=== PATIENT | female | born 1950 | race Caucasian/White ===

== ENCOUNTER 2019-07-19 06:24 | Observation (INO) ==
--- NOTE | 2019-06-23 14:22 | ANES ---
Anesthesia Pre Procedure Eval HOME MEDICATIONS acetaminophen 500 mg tablet 500 mg PO .COMPLEX PRN 06/17/19 [Last Taken Unknown] flecainide 50 mg tablet 50 mg PO .COMPLEX tab 06/17/19 [Last Taken Unknown] metoprolol tartrate 100 mg tablet 100 mg PO BID tab 06/17/19 [Last Taken Unknown] omega-3 fatty acids 1,000 mg capsule 1,000 mg PO DAILY 06/17/19 [Last Taken Unknown] omeprazole 20 mg capsule,delayed release 20 mg PO DAILY cap 06/17/19 [Last Taken Unknown] warfarin 5 mg tablet 5 mg PO QAM tab 06/17/19 [Last Taken Unknown] Allergies/Adverse Reactions: Allergies Allergy/AdvReac Type Severity Reaction Status Date / Time Penicillins Allergy Mild Itching/loco Verified 06/23/19 08:42 h - Planned Procedure Planned Procedure: Arthroplasty Total Knee, Left Medication List Reviewed:: Yes Allergies Verified: Yes Medical History (Last Reviewed 06/23/19 @ 14:21 by Carmelo Kulkarni CRNA) Vertigo (Chronic) Panic attacks (Chronic) Scoliosis (Chronic) Stress incontinence (Chronic) Kidney stones (Chronic) Joint pain (Chronic) Arthritis (Chronic) Anemia (Chronic) Diarrhea (Chronic) Constipation (Chronic) History of IBS (Chronic) Irregular heart beat (Chronic) Basal cell carcinoma removed-right lower leg and face Surgical History (Last Reviewed 06/23/19 @ 14:21 by Carmelo Kulkarni CRNA) H/O removal of cyst Onset Date: ~2007 fatty cyst removed under right arm-[facility] H/O tubal ligation History of ankle surgery Onset Date: ~2013 left ankle arthroscopy-[facility] in [place] Family History (Last Reviewed 06/23/19 @ 14:21 by Carmelo Kulkarni CRNA) Mother Depression Breast cancer Father Sleep apnea A-fib Uncle Blood clot in vein - Family Anesthesia History Family History:: no untoward family reactions to anesthesia, no familial bleeding tendencies, no family history of clotting disorders, no family history of premature - Airway/Neck/Teeth Within Normal Limits:: Yes Mallampatti Score: 3 Thyromental (T-M) distance: > 6 cm Mandibulo Hyoid distance: > 3 cm - Respiratory Respiratory Physical: lungs clear Smoking Status: Former smoker Discussed smoking cessation including day of surgery: No Sleep Apnea currently treated: No Sleep Apnea by current assessment: No Discussed Risks/Treatment of RAPHAEL: No - Cardiovascular Tolerate Activity: Fair Heart Sounds: S1 & S2, Regular - Anesthesia Assessment and Plan ASA Class: PS, III Anesthesia Type Plan: Block - Ultrasound guided adductor canal block for postop analgesia, Spinal
[~2019-07-19 06:24] MED LIST: MORPHINE SULFATE 15 MG TABLET.SA PO PRN; ROPIVACAINE HCL/PF 100 MG, EPINEPHrine 0.2 MG, KETOROLAC TROMETHAMINE 30 MG in NORMAL S... IJ PRN; TRANEXAMIC ACID 1,000 MG in NORMAL SALINE 100 ML IV PRN; ceFAZolin SODIUM 1 GM VIAL IV PRN
[2019-07-19] MEDS ORDERED: ceFAZolin SODIUM 1 GM VIAL ONE (06:33)
[2019-07-19] MEDS ORDERED: ISOPROPYL ALCOHOL 480 APPL BTL MC ONE (06:33)
[2019-07-19] MEDS ORDERED: MIDAZOLAM HCL/PF 5 MG/ML VIAL ONE (06:54)
[2019-07-19] MEDS ORDERED: PROPOFOL VIAL IV ONE ×2 (06:54→07:34)
[2019-07-19] MEDS ORDERED: ONDANSETRON HCL/PF 2 MG/ML VIAL ONE ×2 (06:54→07:33)
[2019-07-19] MEDS ORDERED: LIDOCAINE HCL 50 ML VIAL ONE (06:54)
[2019-07-19] MEDS ORDERED: BUPIVACAINE HCL/EPINEPHRINE 50 ML VIAL ONE (06:55)
[2019-07-19] MEDS: RINGER'S SOLUTION,LACTATED 1,000 ML IV PRN ×3 (07:12→10:00)
[2019-07-19] MEDS ORDERED: LIDOCAINE HCL 20 ML VIAL ONE (07:33)
[2019-07-19] MEDS ORDERED: fentaNYL CITRATE/PF 50 MCG/ML AMPUL ONE (07:33)
[2019-07-19 07:37] LABS: Prothrombin Time (Patient) 10.2 Seconds (9.1-10.7)
[2019-07-19 07:38] LABS: INR 1.03 INR (0.92-1.08)
[2019-07-19] MEDS ORDERED: ZOLPIDEM TARTRATE 5 MG TABLET PO PRN (09:43)
[2019-07-19] MEDS ORDERED: ACETAMINOPHEN 500 MG TABLET PO PRN (09:43)
[2019-07-19] MEDS ORDERED: diphenhydrAMINE HCL 50 MG/ML VIAL IV PRN (09:43)
[2019-07-19] MEDS ORDERED: MORPHINE SULFATE 2 MG/ML DISP.SYRIN IV PRN (09:43)
[2019-07-19] MEDS ORDERED: MAGNESIUM HYDROXIDE 30 ML UDC PO PRN (09:43)
[2019-07-19] MEDS ORDERED: MAG HYDROX/ALUMINUM HYD/SIMETH 30 ML UDC PO PRN (09:43)
--- NOTE | 2019-07-19 09:48 | OR ---
Operative Report - Dictated Report Narrative: Date: 07/19/2019 Preoperative diagnosis: Left knee degenerative joint disease. Postoperative diagnosis: Left knee degenerative joint disease. Procedure: Left total knee arthroplasty. Surgeon: Frederick Tabor M.D. Wrecking Car Driver: Zeke Brar PA-C (provided and essential set of skilled, educated hands that assisted with transfer, positioning, prepping, draping, manipulation, retraction, placement of jigs, injection, insertion of implants, irrigation, closure wounds, and dressings all of which could not be performed by the available surgical crew) Anesthesia: Spinal with regional block and local periarticular joint injection. Complications: None Specimens: Bone. Estimated blood loss: Minimal. Tourniquet time: 80 Minutes at 300 millimeters of mercury. Retained implants: Depuy Attune size 7 left lugged cemented posterior stabilized femoral component. Size 5 fixed-bearing cemented tibial platform. 7 by 5 millimeter posterior stabilized cross-linked tibial insert. 38 millimeter medialized patella button. Indications: Mrs. Velazco is a 69-year-old female who has had longstanding left knee pain and arthrosis. This patient was followed in my clinic for period of time with significant complaints of left knee pain consistent with arthritic changes. She had failed conservative measures including, but not limited to, activity modification, passage of time, medications, and other conservative measures. Patient wished to proceed with surgical treatment. The risks, benefits, and alternatives were discussed in clinic. The risks of , blood clots, bleeding, infection, nerve/tendon blood vessel/ injury, malposition of components, intraoperative fracture, postoperative limited range of motion, persistent pain, failure of components, and need for additional procedures. Patient wished to proceed consent was obtained after answering all questions. Procedure: After marking the correct extremity on the floor, the patient was taken to the operating room. A timeout was performed. IV antibiotics consisting of Ancef were administered prior to the procedure. A regional followed by spinal anesthetic was induced by anesthesia, per my request, on the operative table with all bony prominences well-padded. Christopher catheter was placed, and a bump was placed under the operative side buttock. SCDs and VANESSA hose were utilized on the nonoperative leg. A well-padded tourniquet was applied to the operative thigh. The operative leg was then pre-scrubbed with alcohol, prepped, and draped in a standard sterile fashion. After exsanguinating the extremity with an Esmarch bandage, the tourniquet was inflated. After marking out the anterior knee for standard incision centered over the patella, the skin was incised and dissected down to the joint retinaculum. The joint retinaculum was marked out as well as the horizontal axis of the patella, and a standard medial parapatellar arthrotomy was then made. The most proximal aspect of the quadriceps tendon and the patella tendon insertion were protected from release. A partial synovectomy was performed as well as a resection of the infrapatellar fat pad. The distal femoral fat pad proximal to the trochlea was also resected using cautery. The soft tissues were elevated off the medial aspect of the proximal tibia using a Sosa elevator ensuring that we did not transect the medial collateral ligament. Upon initial evaluation range of motion was approximately 5 degrees to 130 degrees of flexion. There were signs of advanced arthrosis in the medial and patellofemoral greater than lateral joint spaces. There were large marginal osteophytes which were removed with a rongeur. The knee was hyperflexed and the patella was tucked laterally. Protecting the surrounding soft tissues with Homans, an entry drill was placed down the femoral canal using Whitesides line for guidance into the entry point. The intramedullary femoral alignment jose was utilized in order to cut the distal femur in 5 degrees of valgus resecting 10 millimeters of bone. Next the distal femur was sized to a size 7. A posterior referencing guide was utilized to place the distal femoral cutting block in 3 degrees of external rotation. This was pinned into place. The rotation was confirmed both visually and based on anatomic landmarks. The 4 in 1 cutting jig of the appropriate size was utilized in order to make all bony cuts. The angle wing was used to ensure no notching. Retractors were utilized in order to protect surrounding soft tissues. This cut did not result in any excessive notching. We then cut the box centered over the distal femur. This allowed for resection of the anterior and posterior cruciate ligaments. I then turned my attention to the preparation of the tibia. Using an extra medullary tibial alignment jose, 3 millimeters of bone was resected off the medial articular surface. This was made perpendicular to the mechanical axis of the joint with the alignment jose centered over the ankle mortise. The alignment jose was checked and was noted to be parallel to the mechanical axis, centered over the medial one third of the tibial tubercle, paralleling the anterior surface of the tibia. We then turned our attention to the remaining meniscus and soft tissues. These were removed while protecting the surrounding ligaments and soft tissues. The marginal osteophytes off the anterior, posterior, medial, lateral aspects of the femur and tibia were removed. The tibia was sized out to a size 5. Next the tibia was drilled and punched in an externally rotated position. Next the trial femur and a series of tibial inserts were utilized in order to allow for full extension and maximal flexion. It was found that a 5 millimeter insert gave the best range of motion and stability at multiple flexion points as well as at full extension there was less than 2 mm of gapping both medially and laterally. There is minimal anterior translation with the knee at 90 degrees of flexion and no signs of being able to dislocate the knee. The patella was then prepared. The initial thickness was 22 millimeters. This was reamed down to 12 millimeters parallel to the anterior surface of the patella. It was sized out to a size 38 medialized patella button. This was then drilled and trialed. Without any medial restraint the patella tracked appropriately and did not sublux or dislocate. At this point, it was felt these were the appropriate sized implants, and all trials were removed. The standard periarticular joint injection consisting of ropivacaine, Toradol, and epinephrine were injected into the periarticular joint tissues. The bony surfaces were thoroughly irrigated with a pulsatile-suction saline irrigation device. A bone plug from the prior resected anterior chamfer cut was placed into the drill hole at the distal femur. The bony surfaces were then dried in preparation for placement of the implants. The cement was vacuum mixed per the ordnance engineer's instructions. The cement was placed on the dry bony surfaces and posterior aspect of the implants. The implants were impacted into place, removing all extruded cement. At this point anesthesia administered tranexamic acid per protocol intravenously. The knee was placed in extension with axial loading with the trial insert while the cement cured. Once the cement cured, all remaining extruded cement was removed. The knee was placed through a range of motion with the trial insert to ensure appropriate range of motion and stability. Final range of motion was approximately 0 to 130 degrees. The knee was again thoroughly irrigated with pulsatile saline lavage. The final polyethylene insert was then impacted into place ensuring no retained soft tissues. The remaining periarticular joint injection was injected. A medium Hemovac drain was placed exiting superior laterally. The knee was then placed over a triangle and the arthrotomy was closed with interrupted #1 Vicryl after thoroughly irrigating the joint. The deep and subcutaneous tissues were closed with interrupted 0 and 3-0 Vicryl respectively. Skin was closed with a running subcutaneous 3-0 Monocryl and Prineo Dermabond dressing. 4 x 4's, Sof-Rol, and a full leg Juan Carlos wrap were applied. All sponge, needle, blade, and instrument counts were correct prior to closing the wounds. Postoperative condition: The patient was awoken and transferred to the postanesthesia care unit in stable condition. Plan is to be admitted to the inpatient medical/surgical floor postoperatively for 24 hours of IV antibiotics, physical therapy, occupational therapy, and medical comanagement. Patient will be weightbearing as tolerated with range of motion as tolerated. DVT prophylaxis will be with SCDs, VANESSA hose, and pharmacological anticoagulation. Anticipated hospital stay is approximately 1-3 days.
--- NOTE | 2019-07-19 10:06 | ANES ---
Post Anesthesia Discharge - Transfer of Care Transfer of Care handoff given to nurse: Yes - Discharge from PACU Discharge from PACU when meets criteria: Yes - Discharge to ASU Discharge to ASU-no complications/pt stable: Yes
--- NOTE | 2019-07-19 10:08 | ANES ---
Anesthesia Procedure Note Procedure Note: ANESTHESIA PROCEDURE NOTE Date of Procedure: 07/19/2018. Time of procedure: 0755. Performed by: Carmelo Kulkarni CRNA Machinist Mate: None. Preprocedure diagnosis: Left knee degenerative joint disease. Post procedure diagnosis: Same. Procedure: Left ultrasound guided adductor canal block for postoperative analgesia. Indications: The patient is a 69-year-old female, requesting left ultrasound- guided adductor canal block for postoperative analgesia related to left total knee arthroplasty. Findings: See below. Details of the procedure: The tissue over the intended target site was cleansed with ChloraPrepand draped in a sterile fashion. 2 ml Lidocaine 1 % was infiltrated to the skin and subcutaneous tissue at the intended target site. Under sterile technique and ultrasound guidance a 20-gauge block needle was inserted through the left sartorius muscle to the saphenous nerve just anterior and medial to the superficial femoral artery and vein. 15 mL's of 0.5% bupivacaine was injected after negative aspiration for blood. Needle tip and spread of local anesthetic surrounding the saphenous nerve was observed throughout the injection with real time ultrasound visualization. The needle was then removed intact. No complications were noted. The images were retained in the Hospital medical database. EBL: Minimal. Fluids: N/A. Specimen: N/A. Post procedure condition: The patient tolerated the procedure well. No complications were noted. Thank you for this consultation. Carmelo Kulkarni CRNA
[2019-07-19] MEDS: DEXTROSE 5%-LACTATED RINGERS 1,000 ML IV PRN ×2 (10:42→19:52)
[2019-07-19] MEDS: KETOROLAC TROMETHAMINE 15 MG/ML VIAL IV SCH ×3 (10:48→22:04)
[2019-07-19] MEDS: ceFAZolin SODIUM 1 GM in DEXTROSE 5 % IN WATER 100 ML IV SCH ×6 (10:48→23:08)
[2019-07-19] MEDS: oxyCODONE HCL/ACETAMINOPHEN 1 TAB TABLET PO PRN ×2 (11:57→16:10)
--- NOTE | 2019-07-19 12:20 | ANES ---
Post Anesthesia Assessment - Vital Signs Vitals: Last Vital Signs Temp 36.5 C 07/19/19 10:38 Pulse 57 L 07/19/19 11:23 Resp 14 07/19/19 10:53 BP 136/76 07/19/19 11:23 Pulse Ox 99 07/19/19 11:23 Airway Patency: Normal - Mental Status Level Of Consciousness: Awake - Pain Level Pain Score: 0 - N/V Assessment Nausea/Vomiting Presence: None Dehydration:: No
[2019-07-19] MEDS ORDERED: WARFARIN SODIUM 5 MG TABLET PO SCH (17:00)
[2019-07-19] MEDS: ONDANSETRON HCL/PF 2 MG/ML VIAL IV PRN ×2 (17:52→22:05)
[2019-07-19] MEDS: METOPROLOL TARTRATE 100 MG TABLET PO SCH (20:05)
[2019-07-19] MEDS: MORPHINE SULFATE 15 MG TABLET.SA PO SCH (20:09)
[2019-07-19] MEDS ORDERED: FLECAINIDE ACETATE 100 MG TABLET PO SCH (21:00)
[2019-07-19] MEDS ORDERED: SENNOSIDES/DOCUSATE SODIUM 1 TAB TABLET PO SCH (21:00)
[2019-07-20] MEDS: KETOROLAC TROMETHAMINE 15 MG/ML VIAL IV SCH ×2 (03:54→10:29)
[2019-07-20 06:20] LABS: Hematocrit 38.9 % (37.0-47.0); Hemoglobin 12.4 gm/dL (12.5-16.0); Mean Corpuscular Hemoglobin 27.7 pg (27-31); Mean Corpuscular Hgb Conc 31.9 g/dl (32-36); Mean Platelet Volume 9.6 fl (8-12.5); Platelet Count 119 K/mm3 (150-450); Red Blood Count 4.47 M/mm3 (4.2-5.4); Red Cell Distribution Width 13.4 % (11.5-14.0); White Blood Count 5.3 K/mm3 (4.0-10.5)
[2019-07-20 06:27] LABS: Anion Gap 9.8 mmol/L (6.8-13.8); BUN/Creatinine Ratio 11.4 (9.0-21.6); Calcium * 8.1 mg/dL (7.9-10.9); Carbon Dioxide 31.3 mmol/L (24-32.6); Estimated Creat Clear 55.7; Potassium 4.1 mmol/L (3.4-4.6)
[2019-07-20 06:28] LABS: Prothrombin Time (Patient) 10.3 Seconds (9.1-10.7)
[2019-07-20 06:30] LABS: INR 1.04 INR (0.92-1.08)
[2019-07-20] MEDS: ONDANSETRON HCL/PF 2 MG/ML VIAL IV PRN (06:43)
[2019-07-20] MEDS: oxyCODONE HCL/ACETAMINOPHEN 1 TAB TABLET PO PRN (06:43)
[2019-07-20] MEDS ORDERED: PANTOPRAZOLE SODIUM 20 MG TABLET.DR PO SCH (07:00)
[2019-07-20] MEDS: MORPHINE SULFATE 15 MG TABLET.SA PO SCH (08:09)
[2019-07-20] MEDS: METOPROLOL TARTRATE 100 MG TABLET PO SCH ×2 (08:24→10:30)
[2019-07-20] MEDS ORDERED: ENOXAPARIN SODIUM 40 MG/0.4 ML SYRG SC SCH (08:43)
[2019-07-20] MEDS ORDERED: OMEGA-3 FATTY ACIDS 1 CAP CAPSULE PO SCH (09:00)
[2019-07-20] MEDS ORDERED: FLECAINIDE ACETATE 100 MG TABLET PO SCH (09:00)
--- NOTE | 2019-07-20 09:51 | DS ---
(1) Status post left knee replacement Problem: Acute (2) Acute blood loss anemia Problem: Acute (3) Atrial fibrillation Problem: Chronic Date of Discharge:: 07/20/19 Hospital Course: was admitted to the floor after undergoing left total knee arthroplasty. Tolerated this well. Was admitted to the floor postoperatively for 24 hours of IV antibiotics, pain control, medical comanagement, [facility] OT and PT were consulted to assist with activities of daily living and ambulation. Was made weightbearing as tolerated with range of motion as tolerated. Pain was initially controlled with IV regimen. This was transitioned to oral once tolerating a by mouth intake. Was resumed on home diet and medications. Had a Christopher catheter inserted and the operating room which was discontinued on postoperative day 1. A drain was placed intraoperatively into the knee which was discontinued on postoperative day 1. Lovenox warfarin SCD and VANESSA hose were utilized for DVT prophylaxis. Vital signs remained stable to the hospital course. Serial labs were obtained which showed a final hemoglobin of 12.4 grams down from 14.4 g preoperatively. BMP was reviewed and was stable. Physical examination throughout the hospital course showed an extremity that had sensation that was intact to light touch, palpable pulses, a benign wound, motor intact to the toes, ankle, and knee. Knee range of motion was approximately 5 degrees to 70 degrees. Once an oral pain regimen was tolerated and physical therapy goals were met, it was felt that they were stable for discharge to home. Instructions: Continue with weightbearing as tolerated and range of motion as tolerated. It is OK to shower on the wound if it is not draining. If you note any drainage or for comfort you can cover with dry gauze and tape. Change every 2-3 days as needed. Continue with physical therapy. Resume home diet. Report any fever over 101.5 Fahrenheit, uncontrolled pain, increased drainage, foul odor of drainage, new or increased calf pain or shortness of breath, or any other significant complaints. Continue with VANESSA hose on the operative extremity until instructed otherwise. No driving until instructed otherwise. Patient was discharged with 3 days of Lovenox. She will have an INR 3 days from discharge to see if her warfarin is returning to her normal therapeutic level. Follow up in approximately 10-14 days. Procedures Performed: see notes below List Procedures: Left total knee arthroplasty Results and Findings: Lab Pending Results 07/19/19 07:28: PT 10.2, INR (Anticoag Therapy) 1.03 07/20/19 06:10: WBC 5.3, RBC 4.47, Hgb 12.4 L, Hct 38.9, MCV 87.0, MCH 27.7, MCHC 31.9 L, RDW 13.4, Plt Count 119 L, MPV 9.6 07/20/19 06:10: PT 10.3, INR (Anticoag Therapy) 1.04 07/20/19 06:10: Sodium 142, Plasma Sodium 142, Potassium 4.1, Chloride 105, Carbon Dioxide 31.3, Anion Gap 9.8, BUN 10 D, Creatinine 0.88, Est GFR (Non-Af Amer) 68, BUN/Creatinine Ratio 11.4, Random Glucose 109, Calcium 8.1 Discharge Location: Home Disposition: Home self-care Condition: Good Discharge Activity: Activity as tolerated, Weight bearing, Other - With wheeled walker Discharge Diet: General/regular food Referrals: Frederick Tabor MD [Staff Physician] - 08/10/19 10:30 am Problem Oriented Discharge Instructions to Patient/Family: Total Knee Replacement, Care After, Tlfp-mg-Vdtv Additional Patient Instructions (free text): Physical Therapy at [facility] outpatient on at 10:00. Please fax PT order to [phone]. Follow up Orthopedic Dr Cartwright Office appointment on FridayAug.10 at 10:30am. Prescriptions (Any new or edited meds): Enoxaparin Sodium [Lovenox] 40 mg SC Q24H #3 disp.syrin Transmission Status: Pending to [facility] [place] Morphine Sulfate [Ms Contin] 15 mg PO Q12H #14 tablet.sa Transmission Status: Sent to [facility] HYDROcodone/ACETAMINOPHEN [Alton 5-325 Tablet] 1 - 2 each PO Q6H PRN #42 tablet PRN Reason: pain Transmission Status: Sent to [facility] Sennosides/Docusate Sodium [Senokot-S] 2 tab PO HS #30 tab Transmission Status: Pending to [facility] Complete Home Medications List: Complete Home Medication List: acetaminophen 500 mg tablet 500 mg PO .COMPLEX PRN 06/17/19 flecainide 50 mg tablet 50 mg PO .COMPLEX tab 06/17/19 metoprolol tartrate 100 mg tablet 100 mg PO BID tab 06/17/19 omega-3 fatty acids 1,000 mg capsule 1,000 mg PO DAILY 06/17/19 omeprazole 20 mg capsule,delayed release 20 mg PO DAILY cap 06/17/19 warfarin 5 mg tablet 5 mg PO QAM tab 06/17/19 Enoxaparin Sodium [Lovenox] 40 mg SC Q24H #3 disp.syrin 07/20/19 HYDROcodone/ACETAMINOPHEN [Alton 5-325 Tablet] 1 - 2 ea PO Q6H PRN #42 tab 07/20 Morphine Sulfate [Ms Contin] 15 mg PO Q12H #14 tablet.sa 07/20/19 Sennosides/Docusate Sodium [Senokot-S] 2 tab PO HS #30 tab 07/20/19 Warfarin Sodium [Coumadin] 5 mg PO DAILY@1700 tab 07/20/19 Amb Orders for Discharge: Prothrombin Time Time Frame: 3 Days, Facility: [facility], Location: Laboratory PT Evaluation and Treatment* Facility: [facility], Location: Rehabilitation Services
[2019-07-20 14:54] VITALS: BP 148/61
== END 2019-07-20 13:30 | disposition home or self-care (01) ==
LOC: SUR 06:24 → MS 06:24
PROVIDERS: ADMIT Orthopaedic Surgery; ATTEND Orthopaedic Surgery
DX: D62 Acute posthemorrhagic anemia; I48.91 Unspecified atrial fibrillation; Z96.652 Presence of left artificial knee joint
CPT/HCPCS: 36415; 73560; 80048; 85027; 85610; 97110; 97116; 97161; 97165; 97530; G0378; J2405